=== PATIENT | female | born 1985 | race Caucasian/White ===

== ENCOUNTER 2018-07-26 11:55 | Outpatient (REF) | payer MEDICAID, SELFPAY ==
[2018-07-26 20:18] LABS: HGB 12.4 g/dL (12.0-15.5); Mean Corp. HGB Concentration 32.6 g/dL (32.0-36.0); Mean Corpuscular Hemoglobin 27.5 pg (27.0-33.0); Mean Corpuscular Volume 84.3 fL (80-95); Mean Platelet Volume 10.3 fL (8.0-11.0); Platelet Count 209 x1000/uL (130-400); RBC 4.51 m/cumm (4.00-5.20); RBC Distribution Width 13.5 % (11.7-14.6)
[2018-07-26 20:31] LABS: TSH 1.18 uIU/mL (0.358-3.74)
[2018-07-26 20:50] LABS: Iron 92 ug/dL (50-175)
== END 2018-07-26 12:15 ==
LOC: NCHCN 11:55
PROVIDERS: PCP Nurse Practitioner Family; Visit Provider Nurse Practitioner Family
DX: R53.83 Other fatigue (principal)
CPT/HCPCS: 85027; 83540; 84443

== ENCOUNTER 2021-04-05 17:14 | Outpatient (CLI) | payer MEDICAID, SELFPAY ==
--- NOTE | 2021-04-05 | DI.RAD_ITS ---
Exam(s) XR HUMERUS RT XR SHOULDER RT COMPLETE 2+V EXAM: XR HUMERUS RT CLINICAL HISTORY: RT SHOULDER PAIN, H/O OF FALL WHILE SKIING, M25.511. TECHNIQUE: 2D digital imaging was performed. COMPARISON: CR XR SHOULDER RT COMPLETE 2+V from 04/05/2021 FINDINGS: BONES: No acute fracture is present. No bony destructive lesion is seen. Visualized portion of elbow and shoulder joints are unremarkable. AC joint is not widened. SOFT TISSUE: Normal. IMPRESSION: Unremarkable radiographs of the right humerus and right shoulder. DATA REPOSITORY: RADIATION DOSE DELIVERED:
== END 2021-04-05 17:34 ==
PROVIDERS: PCP Nurse Practitioner Family; Visit Provider Nurse Practitioner Family
DX: M25.511 Pain in right shoulder (principal); V00.321A Fall from snow-skis, initial encounter
CPT/HCPCS: 73030; 73060

== ENCOUNTER 2024-02-02 15:51 | Outpatient (REF) | payer MEDICAID, SELFPAY ==
[2024-02-02 19:17] LABS: Abs Immature Grans 0.05 10^3/uL (0.0-0.06); Absolute Basophil Count 0.07 10^3/uL (0.0-0.2); Absolute Eosinophil Count 0.12 10^3/uL (0.0-0.7); Absolute Lymphocyte Count 1.89 10^3/uL (1.2-3.4); Absolute Monocyte Count 0.54 10^3/uL (0.1-0.8); Absolute Neutrophil Count 9.37 10^3/uL (1.2-6.7); Basophils % 0.6 %; HCT 40.6 % (36.0-46.0); HGB 13.2 g/dL (11.2-15.7); Immature Grans % 0.4 %; Lymphocytes % 15.7 %; MCH 27.8 pg (27.0-33.0); MCHC 32.5 % (32.0-36.0); MCV 86 fL (80-95); MPV 10.2 fL (8.0-11.0); Monocytes % 4.5 %; Neutrophils % 77.8 %; Platelet Count 234 10^3/uL (130-400); RBC 4.74 10^6/uL (3.93-5.22); RDW 13.2 % (11.7-14.6); RDW-SD 41.5 fL; WBC 12.04 10^3/uL (4.4-10.8)
[2024-02-02 19:40] LABS: ALT 26 U/L (14-59); AST 23 U/L (15-37); Alkaline Phosphatase 41 U/L (46-116); Anion Gap 8.9 mmol/L (3-11); BUN 12 mg/dL (7-18); Bilirubin, Total 0.33 mg/dL (0.2-1.0); CO2 27.1 mmol/L (21.0-32.0); CREATININE 0.8 mg/dL (0.55-1.02); Calcium 9.3 mg/dL (8.5-10.1); Chloride 107 mmol/L (98-107); Estimated GFR 97.26 (mL/min/1.73m2); Glucose 124 mg/dL (74-106); Potassium 3.5 mmol/L (3.5-5.1); Sodium 143 mmol/L (136-145); TSH (W/Ref FT4) 3.07 uIU/mL (0.36-3.74); Total Protein 7.6 g/dL (6.4-8.2)
== END 2024-02-02 15:52 | disposition home or self-care (01) ==
LOC: NCHCN 15:51
PROVIDERS: PCP Nurse Practitioner Family; Visit Provider Nurse Practitioner Family
DX: R53.83 Other fatigue (principal); R63.4 Abnormal weight loss
CPT/HCPCS: 80053; 84443; 85025

== ENCOUNTER 2024-02-08 16:01 | Outpatient (REF) | payer MEDICAID, SELFPAY ==
[2024-02-08 19:34] LABS: Hemoglobin A1C 5.5 % (<5.7)
== END 2024-02-08 16:02 | disposition home or self-care (01) ==
LOC: NCHCN 16:01
PROVIDERS: PCP Nurse Practitioner Family; Visit Provider Nurse Practitioner Family
DX: R73.9 Hyperglycemia, unspecified (principal)
CPT/HCPCS: 83036